=== PATIENT | male | born 1950 | race Caucasian/White ===

== ENCOUNTER → 2017-08-10 | Day surgery (SDC) | payer OTHER ==
[2017-08-04 09:07] VITALS: Ht 177.8 cm; Wt 79.5 kg
[~2017-08-10] VITALS: Ht 177.8 cm; Wt 79.5 kg
[~2017-08-10] MED LIST: IBUP-1050 PO; LIDOCAINE HCL 2% 2 ML VIAL (20MG/ML) ONE; MIDAZOLAM HCL 1 MG/ML 2ML VIAL ONE; MULT-506 PO; ONDANSETRON INJ 2 MG/ML 2 ML VIAL IV PRN; ONDANSETRON INJ 2 MG/ML 2 ML VIAL ONE; PROPOFOL IV EMULSION 10 MG/ML 20 ML VIAL IV ONE; REDCAP2 PO
--- NOTE | 2017-08-10 10:37 | Endo History and Physical ---
History & Physical Date of Service: Aug 10, 2017. Chief Complaint: screening Referring Physician: Dr. Viky Gonzalez History of Present Illness Patient for CRC screening today, last exam over 10 years ago, no family history of CRC. Past Surgical History Hx Cardiac Surgery: No Hx Internal Defibrillator: No Hx Pacemaker: No Hx Abdominal Surgery: Yes (LEFT INGUINAL HERNIA REPAIR, LAP CHOLEY) Hx of Implantable Prosthesis: No Hx Post-Op Nausea and Vomiting: No Hx Cancer Surgery: No Hx Thoracic Surgery: No Hx Orthopedic: No Hx Urinary Tract Surgery: No Family History Polyp Social History Smoking Status: Current Every Day Smoker Hx Substance Use: No Hx Alcohol Use: Yes ("occasional") Allergies Coded Allergies: Oxycodone (Verified Adverse Reaction, Intermediate, nausea, 08/04/17) Current Medications Reported Home Medications Medications Dose Route/Sig Max Daily Dose Days Date Category Red Yeast Rice (Red Yeast Rice Extract) 600 Mg Cap 1,200 Mg PO DAILY 08/04/17 Reported Advil (Ibuprofen) 200 Mg Tab 400 Mg PO BID PRN 08/04/17 Reported Multivitamin (Multivitamins) Tab 1 Tab PO DAILY 08/04/17 Reported Vital Signs Weight (Kilograms): 79.55 Height (Feet): 5 Height (Inches): 10 Date Time Temp Pulse Resp B/P (MAP) Pulse Ox O2 Delivery O2 Flow Rate FiO2 08/10/17 10:27 36.6 75 18 138/78 (98) 97 Room Air Physical Exam General Appearance: no apparent distress Respiratory/Chest: Auscultation: breath sounds normal Cardiovascular: Heart Auscultation: RRR Abdomen: Inspection & Palpation: soft Assessment and Plan Patient for Colonoscopy today for CRC screening. We have discussed the risks to include bleeding, infection, perforation, pain and missed polyps.
--- NOTE | 2017-08-10 11:27 | GI REPORT ---
Procedure Date: 08/10/2017 10:48 AM Procedure: Colonoscopy Indications: Screening for colorectal malignant neoplasm Medicines: Monitored Anesthesia Care Complications: No immediate complications. Estimated blood loss: Minimal. Estimated Blood Loss: Estimated blood loss: none. Procedure: Pre-Anesthesia Assessment: - Prior to the procedure, a History and Physical was performed, and patient medications, allergies and sensitivities were reviewed. The patient's tolerance of previous anesthesia was reviewed. - The risks and benefits of the procedure and the sedation options and risks were discussed with the patient. All questions were answered and informed consent was obtained. - Patient identification and proposed procedure were verified prior to the procedure by the physician, the nurse and the nuclear weapons specialist. The procedure was verified in the procedure room. - Pre-procedure physical examination revealed no contraindications to sedation. - ASA Grade Assessment: III - A patient with severe systemic disease. - After reviewing the risks and benefits, the patient was deemed in satisfactory condition to undergo the procedure. - The anesthesia plan was to use monitored anesthesia care (MAC). - Immediately prior to administration of medications, the patient was re-assessed for adequacy to receive sedatives. - The heart rate, respiratory rate, oxygen saturations, blood pressure, adequacy of pulmonary ventilation, and response to care were monitored throughout the procedure. - The physical status of the patient was re-assessed after the procedure. After I obtained informed consent, the scope was passed under direct vision. Throughout the procedure, the patient's blood pressure, pulse, and oxygen saturations were monitored continuously. The Scope was introduced through the anus and advanced to the terminal ileum. The colonoscopy was performed without difficulty. The patient tolerated the procedure well. The quality of the bowel preparation was good. Findings: The perianal and digital rectal examinations were normal. Pertinent negatives include normal sphincter tone. The terminal ileum appeared normal. A 7 mm polyp was found in the ascending colon. The polyp was sessile. The polyp was removed with a cold snare. Resection and retrieval were complete. Estimated blood loss was minimal. A 7 mm polyp was found in the transverse colon. The polyp was sessile. The polyp was removed with a cold snare. Resection and retrieval were complete. Estimated blood loss was minimal. A 5 mm polyp was found in the sigmoid colon. The polyp was sessile. The polyp was removed with a cold snare. Resection and retrieval were complete. Estimated blood loss was minimal. Internal hemorrhoids were found during retroflexion. The hemorrhoids were moderate. Many medium-mouthed diverticula were found in the hepatic flexure and ascending colon. The exam was otherwise without abnormality. Impression: - The examined portion of the ileum was normal. - One 7 mm polyp in the ascending colon, removed with a cold snare. Resected and retrieved. - One 7 mm polyp in the transverse colon, removed with a cold snare. Resected and retrieved. - One 5 mm polyp in the sigmoid colon, removed with a cold snare. Resected and retrieved. - Internal hemorrhoids. - Mild diverticulosis at the hepatic flexure and in the ascending colon. - The examination was otherwise normal. Recommendation: - Discharge patient to home (ambulatory). - Advance diet as tolerated today. - Await pathology results. - Repeat colonoscopy in 3 - 5 years for surveillance based on pathology results. - Return to GI office PRN. Gavi Jones D.O. Gavi Jones, 08/10/2017 11:27:02 AM This report has been signed electronically. Note Initiated On: 08/10/2017 10:48 AM I attest to the content of the Intraoperative Record and orders documented therein, exceptions below
--- NOTE | 2017-08-10 11:28 | Discharge Instructions ---
Endoscopy Patient Instructions Date / Procedure(s) Performed Aug 10, 2017. Colonoscopy Allergy Information Coded Allergies: Oxycodone (Verified Adverse Reaction, Intermediate, nausea, 08/04/17) Discharge Date / Findings Aug 10, 2017. Internal hemorrhoids Diverticulosis of the right colon 3 medium-sized colonic polyps Medication Instructions Reported Home Medications Medications Dose Route/Sig Max Daily Dose Days Date Category Red Yeast Rice (Red Yeast Rice Extract) 600 Mg Cap 1,200 Mg PO DAILY 08/04/17 Reported Advil (Ibuprofen) 200 Mg Tab 400 Mg PO BID PRN 08/04/17 Reported Multivitamin (Multivitamins) Tab 1 Tab PO DAILY 08/04/17 Reported Provider Instructions Activity Restrictions - No exercising or heavy lifting for 24 hours. - Do not drink alcohol the day of the procedure. - Do not drive a car or operate machinery until the day after the procedure. - Do not make any important decisions or sign important papers in 24 hours after the procedure. Following Day: - Return to full activity which may include returning to work/school. Diet Start your diet with liquids and light foods (jello, soup, juice, toast). Then eat your usual diet if not nauseated. Treatment For Common After Affects For mild abdominal pain, bloating, or excessive gas: - Rest - Eat lightly - Lie on right side Follow-Up Information Follow-up with Dr. Viky Gonzalez as scheduled Await pathology results Repeat colonoscopy in 3-5 years depending on pathology Anesthesia Information What You Should Know You have had a procedure that required some medicine to reduce anxiety and discomfort. This treatment is called moderate sedation. After receiving the treatment, you may be sleepy, but you will be able to breathe on your own. The effects of the treatment may last for several hours. Follow these instructions along with Activity/Diet recommendations noted above: * Do NOT do anything where dizziness or clumsiness would be dangerous. * Rest quietly at home today, then you can be up and about tomorrow. * Have a responsible person stay with you the rest of today. * You may have had an I.V. today. If so, you may take the dressing off later today. Recommendations Call your doctor if: * Trouble breathing * Continuous vomiting for more than 24 hours * Temperature above 101 degrees * Severe abdominal pain or bloating * Pain not relieved by pain medicine ordered * There is increased drainage or redness from any incision * A large amount of rectal bleeding greater than 2-3 tablespoons. (If you had a polyp/s removed or have hemorrhoids, a small amount of blood - from the rectum is to be expected.) * You have any unanswered questions or concerns. IN THE EVENT OF A SERIOUS EMERGENCY, GO TO THE NEAREST EMERGENCY ROOM Your discharge instructions were prepared by provider Gavi Jones. Patient Instructions Signature Page Filemon Schneider Patient (or Guardian) Signature/Date: I have read and understand the instructions given to me by my caregivers. Caregiver/RN/Doctor Signature/Date: The above-named patient and/or guardian has received patient instructions on this date. + Original Patient Signature Page (only) stays with chart. Please make copy for patient.
--- NOTE | 2017-08-10 11:44 | Anesthesiology Progress Note ---
Anesthesia Post Op Note Date & Time Aug 10, 2017 at 11:44 Vital Signs Pain Intensity: 0 Vital Signs Past 12 Hours Date Time Temp Pulse Resp B/P (MAP) Pulse Ox O2 Delivery O2 Flow Rate FiO2 08/10/17 11:35 62 18 104/67 (79) 96 Room Air 08/10/17 11:20 36.6 64 16 96/59 (71) 97 Room Air 08/10/17 10:27 36.6 75 18 138/78 (98) 97 Room Air Notes Mental Status: alert / awake / arousable, participated in evaluation Pt Amnestic to Procedure: Yes Nausea / Vomiting: adequately controlled Pain: adequately controlled Airway Patency, RR, SpO2: stable & adequate BP & HR: stable & adequate Hydration State: stable & adequate Anesthetic Complications: no major complications apparent
[2017-08-10 11:50] VITALS: BP 118/78; PULSE 63; O2SAT 97
== END | disposition home or self-care (01) ==
LOC: C.GI 10:08
PROVIDERS: ATTEND Internal Medicine Gastroenterology
DX: Z12.11 Encounter for screening for malignant neoplasm of colon (principal); D12.2 Benign neoplasm of ascending colon; D12.3 Benign neoplasm of transverse colon; D12.5 Benign neoplasm of sigmoid colon; K64.8 Other hemorrhoids; K57.30 Diverticulosis of large intestine without perforation or abscess without bleeding; F17.200 Nicotine dependence, unspecified, uncomplicated; Z88.5 Allergy status to narcotic agent